=== PATIENT | male | born 1975 | race Caucasian/White ===

== ENCOUNTER → 2024-03-06 | Day surgery (SDC) | payer BC ==
[~2024-03-06] MED LIST: Lidocaine PF 2% (20 MG/ML) 5 ML VIAL ONE; PANTOPRAZOLE SO40 MG
== END | disposition home or self-care (01) ==
LOC: MSO 07:28
DX: Z12.11 Encounter for screening for malignant neoplasm of colon (principal); D12.2 Benign neoplasm of ascending colon
CPT/HCPCS: 00812; J2704; J7120